=== PATIENT | male | born 1985 | race Two or more races ===

== ENCOUNTER 2022-09-01 21:57 | Emergency (ER) | payer OTHER ==
[~2022-09-01] VITALS: Ht 175.3 cm; Wt 77.1 kg
--- NOTE | 2022-09-01 22:59 | NUR ---
BIBS C/O LEFT KNEE PAIN S/P "LIFTING PATIENT AT WORK". PT IS ALERT AND ORIENTED. RR EVEN AND NONLABORED. CONNECTED TO MONITOR. VSS
[2022-09-02] MEDS ORDERED: NAPROXEN 250 MG TABLET PO ONE
[2022-09-02] MEDS ORDERED: IBUPROFEN 600 MG TABLET ONE (00:07)
[2022-09-02] MEDS ORDERED: IBUPROFEN 600 MG TABLET PO ONE (00:30)
[2022-09-02] MEDS ORDERED: NAPR-1009 PO (01:58)
[2022-09-02 02:09] VITALS: BP 124/85
--- NOTE | 2022-09-02 02:09 | NUR ---
Patient discharged to home in stable condition. Written and verbal after care instructions given. Patient verbalizes understanding of instruction.
== END 2022-09-02 02:10 | disposition home or self-care (01) ==
LOC: ER 22:21
DX: M25.562 Pain in left knee (principal); Z60.2 Problems related to living alone; Z79.1 Long term (current) use of non-steroidal anti-inflammatories (NSAID)
CPT/HCPCS: 73564-TC